=== PATIENT | female | born 1975 | race Caucasian/White ===

== ENCOUNTER 2025-08-20 15:57 | Emergency (ER) | payer BC ==
[~2025-08-20] VITALS: Ht 177.8 cm; Wt 102.1 kg
[2025-08-20] MEDS ORDERED: ACETAMINOPHEN 325 MG TABLET ONE (16:34)
[2025-08-20] MEDS: ACETAMINOPHEN 325 MG TABLET PO ONE (16:39)
[2025-08-20 18:21] VITALS: BP 134/78; TEMP 98.9; O2SAT 100
== END 2025-08-20 18:22 | disposition home or self-care (01) ==
LOC: ER 16:08
DX: M54.2 Cervicalgia (principal); R07.81 Pleurodynia; M25.512 Pain in left shoulder; M25.511 Pain in right shoulder; M25.531 Pain in right wrist; M54.9 Dorsalgia, unspecified; R03.0 Elevated blood-pressure reading, without diagnosis of hypertension; Z88.5 Allergy status to narcotic agent; V89.2XXA Person injured in unspecified motor-vehicle accident, traffic, initial encounter; Y93.89 Activity, other specified; Y92.410 Unspecified street and highway as the place of occurrence of the external cause; Y99.8 Other external cause status
CPT/HCPCS: 71100-TC; 72040-TC; 72070-TC; 72100-TC; 73030-TC; 73110; 84703-TC